=== PATIENT | male | born 1995 | race Caucasian/White ===

== ENCOUNTER 2020-09-27 20:02 | Emergency (ER) | payer OTHER ==
[~2020-09-27] VITALS: Ht 188 cm; Wt 72.6 kg
[2020-09-27 20:48] VITALS: BP 119/70
== END 2020-09-27 20:52 | disposition home or self-care (01) ==
LOC: M.ERS 20:02
DX: S01.01XA Laceration without foreign body of scalp, initial encounter (principal); W17.89XA Other fall from one level to another, initial encounter; Y93.89 Activity, other specified; Y92.89 Other specified places as the place of occurrence of the external cause; Y99.8 Other external cause status

== ENCOUNTER 2021-09-08 00:15 | Emergency (ER) | payer OTHER ==
[~2021-09-08] VITALS: Ht 188 cm; Wt 70.3 kg
[2021-09-08 01:29] LABS: AMP/METHAMP Negative (Negative); BARBITURATES Negative (Negative); BENZODIAZEPINES Negative (Negative); COCAINE Negative (Negative); METHADONE Negative (Negative); OPIATES Negative (Negative); PCP Negative (Negative); THC Negative (Negative)
[2021-09-08 02:00] VITALS: BP 135/82
[2021-09-08] MEDS ORDERED: HYDROXYZINE HCL25 M2 PO (02:04)
== END 2021-09-08 02:00 | disposition home or self-care (01) ==
LOC: M.ERS 00:15
PROVIDERS: Emergency Medicine
DX: F41.9 Anxiety disorder, unspecified (principal); Z20.822 Contact with and (suspected) exposure to COVID-19